=== PATIENT | male | born 1940 | race Caucasian/White ===

== ENCOUNTER 2022-07-12 06:17 | Day surgery (SDC) | payer MEDICARE, BC, SELFPAY ==
[2022-07-12] VITALS (8 sets, daily range): BP systolic 134–163; BP diastolic 70–82; PULSE 68–77; RESP 16; TEMP 36.6; O2SAT 95–97; BMI 27.2
[2022-07-12] MEDS: lidocaine HCL 2 % MULTIDOSE 20 ML VIAL INJECTION (07:30)
[2022-07-12] MEDS: BUPIVACAINE 0.5% 30 ML INJECTION (07:30)
--- NOTE | 2022-07-12 08:01 | P.ORPRC_ITS ---
Procedure Note Date of procedure: 07/12/22 Procedure: Preop diagnosis: Left hand ring finger stenosing tenosynovitis Postop diagnosis: Left hand ring finger stenosing tenosynovitis Procedure: Left hand ring finger A1 omid release Anesthesia: Local Surgeon: Markus Olivera MD multimedia production assistant: KELLY Costa EBL: 0 mL Complications: None Specimens: None Drains: None Preoperative antibiotics: None Indications: The patient has a history of left upper extremity ring fingers painful catching and locking. Despite appropriate non operative management including flexor tendon sheath corticosteroid injections they continue to have symptoms. Operative intervention was recommended. The risks, benefits alternatives and expected outcomes were discussed in detail. These included but were not limited to: Infection, bleeding, injury to blood vessel or nerve, venous thromboembolism. All questions were answered to their satisfaction. The patient was placed supine on the operating room table. Local anesthesia was established with 0.5% Marcaine without epinephrine and 2% lidocaine without epinephrine. The hand was prepped and draped in usual sterile fashion. The limb was elevated the forearm pneumatic tourniquet was inflated to 250 mm of mercury. A transverse incision was made centered over the base of the ring finger in the distal palmar crease. Subcutaneous dissection was taken through the palmar fascia to the flexor tendons with the tenotomy scissors. The A1 omid was r eleased with the 15 blade and a tenotomy scissors. Active flexion and extension of the finger shows no catching or locking, no bowstringing of the flexor tendons. The wound was closed with interrupted nylon sutures. A dry dressing was applied the tourniquet was released. Sponge and needle counts were correct x 2. The patient tolerated the procedure well, there were no apparent complications. They were sent to same day surgery in satisfactory condition. Plan: Use of the hand as tolerates. Discontinue the intraoperative dressing on postoperative day 3 and may get the wound wet as tolerates. Follow up in the office in 2 weeks for a wound check and suture removal.
== END 2022-07-12 08:34 | disposition home or self-care (01) ==
PROVIDERS: PCP Family Medicine; Visit Provider Orthopaedic Surgery
PROC: (CPT 26055; principal; 2022-07-12 07:30)
DX: M65.341 Trigger finger, right ring finger (principal); M65.841 Other synovitis and tenosynovitis, right hand
CPT/HCPCS: 26055; J3490

== ENCOUNTER 2022-08-15 14:53 | Outpatient (RCR) | payer MEDICARE, BC, SELFPAY ==
[2022-08-15 15:32] LABS: Basophils Percent Auto 0.8 % (0.0-3.0); Eosinophils Percent Auto 2.6 % (0.0-7.0); Hematocrit 35.6 % (37.0-53.0); Hemoglobin* 11.7 gm/dL (13.5-17.5); Immature Granulocytes Abs Auto 0.08 K/uL (0.00-0.30); Lymphocytes Percent Auto 64.2 % (20-44); Mean Corpuscular HGB Conc 33 gm/dL (32-36); Mean Corpuscular Hemoglobin 31 pg (26-34); Mean Corpuscular Volume 95 fL (80-100); Neutrophils Percent Auto 25.9 % (42.0-72.0); Platelet Count* 189 K/uL (140-440); RDW Coefficient of Variation % 13.1 % (11.5-15.5); Red Blood Count 3.74 m/uL (4.30-5.90); White Blood Count* 15.41 K/uL (4.50-11.00)
[2022-08-15 15:39] LABS: Slide Review Reflex Yes
[2022-08-15 16:16] LABS: Lactate Dehydrogenase* 455 U/L (313-618)
[2022-08-15 16:45] LABS: Immature Reticulocyte Fraction 13.4 % (2.3-13.4); Reticulocyte Hemoglobin Equivi 31.7 pg (29.0-35.0); Reticulocyte Percent 1.7 % (0.5-2.0); Reticulocytes Absolute 0.06 # (0.03-0.08)
[2022-08-15 17:14] LABS: Ferritin* 89.9 ng/mL (17.9-464.0); Slide Review Acceptable Review (Acceptable)
[2022-08-15 17:45] LABS: Vitamin B12* 355 pg/mL (243-894)
[2022-08-16 14:26] LABS: Fecal Occult Blood* Negative (Negative)
[2022-08-21 06:36] LABS: Folate, Serum > 22.3 ng/mL (>=5.9)
== END 2023-02-11 23:59 | disposition home or self-care (01) ==
LOC: CCIC 14:53
PROVIDERS: PCP Family Medicine; Referring Provider Family Medicine; Visit Provider Internal Medicine Hematology & Oncology
DX: C91.Z0 Other lymphoid leukemia not having achieved remission (principal); E83.51 Hypocalcemia; C91.11 Chronic lymphocytic leukemia of B-cell type in remission
CPT/HCPCS: 36415; 82270; 82607; 82728; 82746; 83615; 85025; 85045; 99212; 99214

== ENCOUNTER 2022-09-11 13:45 | Outpatient (RCR) | payer MEDICARE, BC, SELFPAY ==
--- NOTE | 2022-07-17 17:13 | PT.OPEX ---
PT [place] Outpatient Eval PT [facility] Outpatient Eval Start: 07/17/22 16:13 Freq: Status: Active Protocol: Document 07/17/22 16:15 NMK (Rec: 07/17/22 17:12 NMK [id number]) E-signed By Jesus Rome DPT Physical Therapy Outpatient Evaluation Insurance Information Recert Due Date 10/17/22 Insurance Name Medicare B,Blue [employer] Medical Diagnosis Pain in Right Shoulder Treating Diagnosis Right shoulder pain; Decreased Right shoulder ROM Referring Markus Noble MD Subjective Subjective 82 y.o. male pt presents with primary c/o bilateral shoulder pain. On the L shoulder, he reports pain his shoulder is achy and he gets pins and needles down into his L shoulder. He does not get much pain is his L shoulder, but rather reports more numbness. He also reports some neck pain on his L side as well. He denies symptoms distally at this time. R shoulder was hurt last thanksgiving when he was doing cutting squash last thanksgi. He got an MRI on the R which revealed torn rotator cuff and biceps tendon on the R. Pain in shoulder with R>L. Difficult/provoking activities in the R shoulder include washing windows or other reaching activities such as changing a light bulb. He also pain with lifting activities as well as turning over in bed at night. He reports the numbness in his L shoulder does not really follow a pattern at this time. He is hoping to get his shoulders and neck to feeling better so they are less bothersome, and he is hoping to improve some strength around his shoulder. PMH: 6 stents in heart; Bilateral hip and knee replacements; HTN; Leukemia; Arthritis; Latex allergy Current Work Status Retired Preferred Name Sudhakar Precautions Treatment Precautions/Contraindications Latex allergy; HTN Therapy Limitations/Systems Review Not Limited Objective Other/Pertinent Objective MMT: L/R Shoulder flexion: 5/4* Shoulder abduction: 5/4-* Shoulder ER: 5/4+ Shoulder IR: 5/4 *indicates pain with resisted testing ROM Shoulder flexion L: 130 degrees R: 110 degrees Shoulder abduction L: 135 degrees R: 75 degrees Shoulder IR: L: Level of T10-L1 R: Sacrum Palpation: TTP present over anterior and posterior cuff structures; no other TTP present over any other structures. Special tests Full can: (+) on R Empty can: (+) on R ER resistance: (+) on R Assessment Assessment/Impression Findings are consistent with a diagnosis of R mechanical shoulder pain with signs and symptoms consistent with RC tear, likely involving supraspinatus muscle based on muscle testing. Impairments related to current health condition include R shoulder pain, decreased shoulder ROM on R, and shoulder weakness. These impairments contribute to decreased ability to lift arm and other heavy objects as well as perform reaching activities for daily living. Examination of body systems including structures, functions, activity limitations and participation restrictions have been addressed. Skilled PT is recommended in order to improve the patient's mobility and restore their baseline level of function. Within session patient tolerating shoulder isometrics and ROM exercises showing some improvements in ROM after our session. Primary Functional Limitations Reaching, lifting Plan of Care Rehabilitation Potential Fair Physical Therapy Goals Prior to 10/17/2022... 1. Pt will demonstrate shoulder active range of motion >150 degrees in involved upper extremity in order to show functional ability to reach into cabinets at home 2. Pt will demonstrate ability to lift 5 pounds overhead report less than 3/10 shoulder pain when doing so to show ability to lift objects at home 3. Pt will report <3/10 pain while sleeping at night and wake up less than 3 times per night from pain to show enhanced sleep quality 4. Pt will be independent in HEP in order to show ability to self manage condition after discharge Coordination/Communication With Referral Source Treatment Plan/Direct Interventions Joint Mobilization,Manual Therapy,Self-Care/Home Management,Therapeutic Exercises Frequency/Duration 1-2 per week for 8-12 weeks Patient Will Be Discharged From Therapy Completion of LTG(s),Skills Plateau,Independent w/HEP, Independently Progressing Evaluation Billing Untimed Code Treatment Minutes 20 Complexity Moderate Certification Information Initial Certification Date 07/17/22 Ending Certification Date 10/17/22 Physician Comment/Change Comment or Changes Physician NPI Number #
== END 2022-09-13 14:17 | disposition home or self-care (01) ==
PROVIDERS: PCP Family Medicine; Visit Provider Orthopaedic Surgery
DX: M25.511 Pain in right shoulder (principal); Z51.89 Encounter for other specified aftercare
CPT/HCPCS: 97110; 97140; 97162

== ENCOUNTER 2022-12-04 06:17 | Day surgery (SDC) | payer MEDICARE, BC, SELFPAY ==
[2022-12-04] VITALS (7 sets, daily range): BP systolic 114–142; BP diastolic 70–91; PULSE 58–72; RESP 16; TEMP 36.1–36.7; O2SAT 92–98; BMI 28.6
[2022-12-04] MEDS: LACTATED RINGERS 1000 ML 1,000 ML 100 ML IV (07:07)
[2022-12-04] MEDS: SODIUM CHLORIDE 0.9 % (FLUSH) 10 ML SYRINGE IVF (07:08)
--- NOTE | 2022-12-04 07:10 | SUR.PREOP ---
patient did home covid antigen test on 12/03/22 afternoon. Patient brought test in to show nurse. I observed 1 line indicating a negative test.
[2022-12-04] MEDS: MIDAZOLAM HCL 1 MG/ML inj IVP (07:14)
[2022-12-04] MEDS: fentaNYL 100 MCG/2 ML inj IVP (07:14)
--- NOTE | 2022-12-04 07:16 | SUR.PREOP ---
TIME?OUT:?07 PT/Mari Kan RN/Dr. Gabriele MDA?VERIFICATION?OF?SURGICAL?SITE Left elbow,?PROCEDURE,?AND?CONSENT OBTAINED?PRIOR?TO?INVASIVE?PROCEDURE.
--- NOTE | 2022-12-04 07:25 | P.NB_ITS ---
Nerve Block Nerve Block Time Seen by Provider: 07:21 Date Seen: 12/04/22 Type of block requested by surgeon for post-operative analgesia: axillary Side: left Time out performed: Yes Verification of patient name: Yes Verification of date of : Yes Site marking: site marked Name of person performing procedure: Gabriele Continuous monitoring Was continuous monitoring of O2 sat, B/P, school bus monitor, recorded every 15 minutes?: Yes Procedure Checklist: sterile prep, needles and gloves Ultrasound guided. Images saved: Yes Medications given in 5ml increments after negative aspiration: Marcaine %: 0.25 mL: 15 Needle gauge: 22 and Lidocaine %: 2 mL: 15 Needle gauge: 22 Patient tolerated procedure well: Yes Additional comments: Needle noted adjacent to nerve Block Charges Block Charge (with Pro Fee): Brachial Plexus Use of Ultrasound Machine for Block: Yes- US Guidance/pain block
[2022-12-04] MEDS: CEFAZOLIN 2 GM INJ IVP (07:37)
--- NOTE | 2022-12-04 08:07 | PM.ORPRC ---
Procedure Note Date of procedure: 12/04/22 Procedure: Preop diagnosis: Left upper extremity cubital tunnel syndrome Postop diagnosis: Left upper extremity cubital tunnel syndrome Procedure: Left upper extremity cubital tunnel release Anesthesia: Axillary block plus MAC Surgeon: Markus Olivera MD certified medical technician assistant: Aryan MENDOZA EBL: 0 mL Complications: None Specimens: None Drains: None Preoperative antibiotics: Ancef 2 g Indications: The patient has a history of left upper extremity cubital tunnel syndrome symptoms. EMG/nerve conduction study confirms the diagnosis. Despite appropriate nonoperative management they continue to have symptoms. Operative intervention was recommended. The risks, benefits alternatives and expected outcomes were discussed in detail. These included but were not limited to: Infection, bleeding, injury to blood vessel or nerve, venous thromboembolism. All questions were answered to their satisfaction. An axillary block was placed by anesthesia. The patient was placed supine on the operating room table. IV sedation was administered. The upper extremity was prepped and draped in usual sterile fashion. The limb was exsanguinated with the Markell bandage, the pneumatic tourniquet was inflated to 250 mm of mercury. A longitudinal incision was made centered over the ulnar nerve at the cubital tunnel. Subcutaneous dissection was taken with the scalpel and Metzenbaum and tenotomy scissors to the ulnar nerve. Dissection was carried distally to the fascia over the flexor carpi ulnaris which was divided longitudinally. We visualized the motor branch to the FCU. Dissection was carried proximally into the triceps muscle belly. 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 This was released off of the medial epicondyle. This results in a wide decompression of the ulnar nerve. Flexion and extension of the elbow shows the nerve is stable. The wound was irrigated with normal saline. It was closed with a 2-0 Vicryl and a 3-0 Monocryl in a subcuticular fashion. Glue was used to seal the skin. A soft dressing was applied. The tourniquet was released. The patient tolerated the procedure well, there were no apparent complications. They were sent to same day surgery in satisfactory condition. Plan: Use of the upper extremity as tolerates. Discontinue the intraoperative dressing on postoperative day 3 and may get the wound wet as tolerates. Follow up in the office in 1-2 weeks for a wound check.
--- NOTE | 2022-12-04 08:39 | W.ANESCHARGE ---
Anesthesia Charges Start Date/Time Anesthesia Start Date: 12/04/22 Anesthesia Start Time: 07:27 Stop Date/Time Anesthesia Stop Date: 12/04/22 Anesthesia Stop Time: 08:35 Summary Emergency: No Extremes of Age: Over 70-CPT 19516
--- NOTE | 2022-12-04 09:45 | W.ANESCHARGE ---
Anesthesia Charges Start Date/Time Anesthesia Start Date: 12/04/22 Anesthesia Start Time: 07:27 Stop Date/Time Anesthesia Stop Date: 12/04/22 Anesthesia Stop Time: 08:35 Summary Emergency: No Extremes of Age: Over 70-CPT 14714
== END 2022-12-04 09:40 | disposition home or self-care (01) ==
PROVIDERS: PCP Family Medicine; Visit Provider Orthopaedic Surgery
PROC: (CPT 64718; principal; 2022-12-04 07:30)
DX: G56.22 Lesion of ulnar nerve, left upper limb (principal)
CPT/HCPCS: 64718; 01710; 64415; 76942; 99100; J0690; J2250; J2405; J2704; J3010; J3490; J7120

== ENCOUNTER 2023-05-14 10:00 | Outpatient (RCR) | payer MEDICARE, BC, SELFPAY ==
[2023-02-12 11:17] LABS: Basophils Percent Auto 0.8 % (0.0-3.0); Eosinophils Percent Auto 2.1 % (0.0-7.0); Hemoglobin* 12.9 gm/dL (13.5-17.5); Immature Granulocytes Pct Auto 0.3 %; Lymphocytes Percent Auto 64.4 % (20-44); Mean Corpuscular HGB Conc 33 gm/dL (32-36); Mean Corpuscular Hemoglobin 31 pg (26-34); Mean Corpuscular Volume 93 fL (80-100); Monocytes Percent Auto 4.1 % (0.0-11.0); Neutrophils Percent Auto 28.3 % (42.0-72.0); Platelet Count* 210 K/uL (140-440); RDW Coefficient of Variation % 12.7 % (11.5-15.5); White Blood Count* 20.44 K/uL (4.50-11.00)
[2023-02-12 11:33] LABS: Albumin* 4.2 g/dL (3.3-5.0)
[2023-02-12 11:34] LABS: Chloride* 103 mmol/L (96-114); Potassium* 3.7 mmol/L (3.6-5.1); Sodium* 138 mmol/L (135-149)
[2023-02-12 11:36] LABS: Alkaline Phosphatase* 90 U/L (40-150); Aspartate Amino Transferase* 22 U/L (12-35); Bilirubin Total* 1.1 mg/dL (0.1-1.5); Carbon Dioxide* 28 mmol/L (20-32); Creatinine* 0.9 mg/dL (0.5-1.5); Estimated Glomerular Filt Rate 85 ml/min; Total Protein* 6.6 g/dL (6.0-8.3)
[2023-02-12 11:37] LABS: Alanine Aminotransferase* 16 U/L (4-50); Blood Urea Nitrogen* 16 mg/dL (7-30); Calcium* 8.4 mg/dL (8.4-10.6); Glucose* 108 mg/dL (60-115); Lactate Dehydrogenase* 176 U/L (120-246)
[2023-02-12 11:56] LABS: Slide Review Reflex Yes
[2023-02-12 11:57] LABS: Slide Review Acceptable Review (Acceptable)
[2023-05-14 10:06] LABS: Basophils Percent Auto 0.5 % (0.0-3.0); Eosinophils Percent Auto 1.2 % (0.0-7.0); Hematocrit 36.6 % (37.0-53.0); Hemoglobin* 12.3 gm/dL (13.5-17.5); Immature Granulocytes Pct Auto 0.5 %; Lymphocytes Percent Auto 73.1 % (20-44); Mean Corpuscular HGB Conc 34 gm/dL (32-36); Mean Corpuscular Hemoglobin 32 pg (26-34); Mean Corpuscular Volume 94 fL (80-100); Monocytes Percent Auto 3.8 % (0.0-11.0); Neutrophils Percent Auto 20.9 % (42.0-72.0); Platelet Count* 202 K/uL (140-440); RDW Coefficient of Variation % 12.5 % (11.5-15.5); White Blood Count* 19.94 K/uL (4.50-11.00)
[2023-05-14 10:22] LABS: Albumin* 4.2 g/dL (3.3-5.0); Chloride* 98 mmol/L (96-114)
[2023-05-14 10:23] LABS: Potassium* 3.8 mmol/L (3.6-5.1); Sodium* 130 mmol/L (135-149)
[2023-05-14 10:25] LABS: Aspartate Amino Transferase* 22 U/L (12-35); Bilirubin Total* 1.1 mg/dL (0.1-1.5); Carbon Dioxide* 24 mmol/L (20-32); Estimated Glomerular Filt Rate 75 ml/min; Total Protein* 6.4 g/dL (6.0-8.3)
[2023-05-14 10:26] LABS: Alanine Aminotransferase* 16 U/L (4-50); Alkaline Phosphatase* 89 U/L (40-150); Blood Urea Nitrogen* 20 mg/dL (7-30); Calcium* 8.6 mg/dL (8.4-10.6); Glucose* 127 mg/dL (60-115); Lactate Dehydrogenase* 141 U/L (120-246)
[2023-05-14 10:34] LABS: Slide Review Reflex Yes
[2023-05-14 10:35] LABS: Slide Review Acceptable Review (Acceptable)
--- NOTE | 2023-06-06 16:49 | ONC.NURNOTE ---
Patient had sodium of 131 today-previously 130-Dr. Cummings reviewed and asked travel writer to call and let patient know results and instruct patient to continue to take in as much sodium as he can. Follow up with primary care Message left as no answer
== END 2023-08-11 23:59 | disposition home or self-care (01) ==
LOC: CCIC 10:00
PROVIDERS: PCP Family Medicine; Referring Provider Family Medicine; Visit Provider Internal Medicine Hematology & Oncology
DX: D72.820 Lymphocytosis (symptomatic) (principal); D64.9 Anemia, unspecified; E83.51 Hypocalcemia; E87.1 Hypo-osmolality and hyponatremia
CPT/HCPCS: 36415; 80053; 83615; 85025; 99212; 99213; 99214

== ENCOUNTER 2023-05-30 09:00 | Outpatient (CLI) | payer MEDICARE, BC, SELFPAY | END 2023-05-30 09:01 | disposition home or self-care (01) | PROVIDERS: PCP Family Medicine; Referring Provider Family Medicine; Visit Provider Internal Medicine Hematology & Oncology | DX: E87.1 Hypo-osmolality and hyponatremia (principal) | CPT/HCPCS: 84295 ==

== ENCOUNTER 2024-05-06 10:30 | Outpatient (RCR) | payer MEDICARE, BC, SELFPAY ==
--- NOTE | 2023-10-10 11:45 | ONC.NURNOTE ---
Called to schedule 6 mon follow up/labs due October 2023, Reggie stated that he would like bloodwork done every 6 months , follow up at 12 months.
[2023-11-08 10:05] LABS: Basophils Percent Auto 0.4 % (0.0-3.0); Eosinophils Percent Auto 1.5 % (0.0-7.0); Hematocrit 41.6 % (37.0-53.0); Hemoglobin* 13.2 gm/dL (13.5-17.5); Immature Granulocytes Pct Auto 0.4 %; Lymphocytes Percent Auto 63.1 % (20-44); Mean Corpuscular HGB Conc 32 gm/dL (32-36); Mean Corpuscular Hemoglobin 31 pg (26-34); Mean Corpuscular Volume 97 fL (80-100); Monocytes Percent Auto 4.3 % (0.0-11.0); Neutrophils Percent Auto 30.3 % (42.0-72.0); Platelet Count* 210 K/uL (140-440); RDW Coefficient of Variation % 12.6 % (11.5-15.5); Red Blood Count 4.27 m/uL (4.30-5.90); White Blood Count* 18.45 K/uL (4.50-11.00)
[2023-11-08 10:26] LABS: Albumin* 4.5 g/dL (3.3-5.0); Chloride* 106 mmol/L (96-114)
[2023-11-08 10:27] LABS: Potassium* 4.1 mmol/L (3.6-5.1); Sodium* 140 mmol/L (135-149)
[2023-11-08 10:29] LABS: Anion Gap 8 mEq/L (7-15); Bilirubin Total* 0.9 mg/dL (0.1-1.5); Carbon Dioxide* 26 mmol/L (20-32); Creatinine* 0.9 mg/dL (0.5-1.5); Estimated Glomerular Filt Rate 85 ml/min
[2023-11-08 10:30] LABS: Alanine Aminotransferase* 27 U/L (4-50); Alkaline Phosphatase* 98 U/L (40-150); Aspartate Amino Transferase* 30 U/L (12-35); Blood Urea Nitrogen* 16 mg/dL (7-30); Calcium* 9.1 mg/dL (8.4-10.6); Glucose* 91 mg/dL (60-115); Lactate Dehydrogenase* 164 U/L (120-246)
[2023-11-08 10:46] LABS: Slide Review Reflex Yes
[2023-11-08 10:47] LABS: Slide Review Acceptable Review (Acceptable)
== END 2024-05-06 23:59 | disposition home or self-care (01) ==
LOC: CCIC 10:30
PROVIDERS: PCP Family Medicine; Referring Provider Family Medicine; Visit Provider Internal Medicine Hematology & Oncology
DX: D72.820 Lymphocytosis (symptomatic) (principal)
CPT/HCPCS: 36415; 80053; 83615; 85025

== ENCOUNTER 2024-06-09 09:45 | Outpatient (RCR) | payer MEDICARE, BC, SELFPAY ==
[2024-06-09 10:11] LABS: Basophils Percent Auto 0.2 % (0.0-3.0); Eosinophils Percent Auto 1.3 % (0.0-7.0); Hematocrit 38.1 % (37.0-53.0); Hemoglobin* 12.6 gm/dL (13.5-17.5); Immature Granulocytes Pct Auto 0.5 %; Lymphocytes Percent Auto 74.1 % (20-44); Mean Corpuscular HGB Conc 33 gm/dL (32-36); Mean Corpuscular Hemoglobin 31 pg (26-34); Mean Corpuscular Volume 93 fL (80-100); Monocytes Percent Auto 4.4 % (0.0-11.0); Neutrophils Percent Auto 19.5 % (42.0-72.0); Platelet Count* 157 K/uL (140-440); RDW Coefficient of Variation % 12.3 % (11.5-15.5)
[2024-06-09 10:23] LABS: Albumin* 4.3 g/dL (3.3-5.0); Chloride* 99 mmol/L (96-114); Sodium* 130 mmol/L (135-149)
[2024-06-09 10:24] LABS: Potassium* 4.1 mmol/L (3.6-5.1)
[2024-06-09 10:26] LABS: Alkaline Phosphatase* 88 U/L (40-150); Anion Gap 8 mEq/L (7-15); Aspartate Amino Transferase* 21 U/L (12-35); Bilirubin Total* 0.9 mg/dL (0.1-1.5); Blood Urea Nitrogen* 15 mg/dL (7-30); Carbon Dioxide* 23 mmol/L (20-32); Creatinine* 0.9 mg/dL (0.5-1.5); Estimated Glomerular Filt Rate 84 ml/min; Lactate Dehydrogenase* 129 U/L (120-246); Total Protein* 6.5 g/dL (6.0-8.3)
[2024-06-09 10:27] LABS: Alanine Aminotransferase* 13 U/L (4-50); Calcium* 9.2 mg/dL (8.4-10.6); Glucose* 125 mg/dL (60-115)
[2024-06-09 10:48] LABS: Slide Review Reflex Yes; White Blood Count* 25.16 K/uL (4.50-11.00)
[2024-06-09 10:49] LABS: Slide Review Acceptable Review (Acceptable)
--- NOTE | 2024-06-09 14:00 | PC.NURSE ---
Received a call from Ciara at [facility] asking for clarification about CBC, CMP, and LDH and quantity and frequency. RN reviewed MD notes and discussed with Dr. Cummings. She would like all 3 labs done every 3 months x 4. Called Ciara back with this clarification.
== END 2024-12-06 23:59 | disposition home or self-care (01) ==
LOC: CCIC 09:45
PROVIDERS: PCP Family Medicine; Referring Provider Family Medicine; Visit Provider Internal Medicine Hematology & Oncology
DX: D72.820 Lymphocytosis (symptomatic) (principal); D64.9 Anemia, unspecified; E83.51 Hypocalcemia; E87.1 Hypo-osmolality and hyponatremia
CPT/HCPCS: 36415; 80053; 83615; 85025; 99214; G0463

== ENCOUNTER 2025-01-01 08:41 | Outpatient (CLI) | payer MEDICARE, BC, SELFPAY ==
--- NOTE | 2025-01-01 10:42 | P.ANES_ITS ---
Anesthesia Charges Start Date/Time Anesthesia Start Date: 01/01/25 Anesthesia Start Time: 10:09 Stop Date/Time Anesthesia Stop Date: 01/01/25 Anesthesia Stop Time: 10:37 Coding CPT Codes CPT Codes: ANES LWR INTST NDSC NOS - 08479 ([id number]) P3 - PATIENT W/SEVERE SYS DISEASE, QK - STAMP REDEMPTION CLERK 2-4 CNCRNT ANES PROC, QX - PRICING DIRECTOR SVC W/ MD MED DIRECTION
--- NOTE | 2025-01-01 10:42 | W.ANESCHARGE ---
Anesthesia Charges Start Date/Time Anesthesia Start Date: 01/01/25 Anesthesia Start Time: 10:09 Stop Date/Time Anesthesia Stop Date: 01/01/25 Anesthesia Stop Time: 10:37 Coding CPT Codes CPT Codes: ANES LWR INTST NDSC NOS - 06821 ([id number]) P3 - PATIENT W/SEVERE SYS DISEASE, QK - PHARMACIST ASSISTANT 2-4 CNCRNT ANES PROC, QX - INTEGRATION ASSISTANT SVC W/ MD MED DIRECTION
--- NOTE | 2025-01-01 11:32 | P.ANES_ITS ---
Anesthesia Charges Start Date/Time Anesthesia Start Date: 01/01/25 Anesthesia Start Time: 10:09 Stop Date/Time Anesthesia Stop Date: 01/01/25 Anesthesia Stop Time: 10:37 Summary Extremes of Age - Over 70 or under 1: MDA Coding CPT Codes CPT Codes: ANES LWR INTST NDSC NOS - 00691 ([id number]) QK - TELECOMMUNICATIONS OPERATOR 2-4 CNCRNT ANES PROC, QX - WELL POINT PUMPING SUPERVISOR SVC W/ MD MED DIRECTION, P3 - PATIENT W/SEVERE SYS DISEASE Additional Codes: Summary - Extremes of Age - Over 70 or under 1: MDA ([id number])
== END 2025-01-01 08:42 | disposition home or self-care (01) ==
LOC: OP CLINIC 08:42
PROVIDERS: PCP Family Medicine; Visit Provider Internal Medicine Gastroenterology
DX: Z12.11 Encounter for screening for malignant neoplasm of colon (principal); D12.2 Benign neoplasm of ascending colon; D12.3 Benign neoplasm of transverse colon; Z86.0100 Personal history of colon polyps, unspecified
CPT/HCPCS: 00811; 45385; 88305; 99100; J2704

== ENCOUNTER 2025-06-14 08:30 | Outpatient (RCR) | payer MEDICARE, BC, SELFPAY ==
[2024-12-23 10:34] LABS: Albumin* 4.4 g/dL (3.3-5.0); Hematocrit 40.5 % (37.0-53.0); Hemoglobin* 13.1 gm/dL (13.5-17.5); Immature Granulocytes Pct Auto 0.5 %; Mean Corpuscular HGB Conc 32 gm/dL (32-36); Mean Corpuscular Hemoglobin 31 pg (26-34); Mean Corpuscular Volume 95 fL (80-100); RDW Coefficient of Variation % 13.0 % (11.5-15.5); Red Blood Count 4.28 m/uL (4.30-5.90); White Blood Count* 20.47 K/uL (4.50-11.00)
[2024-12-23 10:35] LABS: Chloride* 106 mmol/L (96-114); Potassium* 3.9 mmol/L (3.6-5.1); Sodium* 140 mmol/L (135-149)
[2024-12-23 10:37] LABS: Anion Gap 9 mEq/L (7-15); Aspartate Amino Transferase* 22 U/L (12-35); Bilirubin Total* 1.1 mg/dL (0.1-1.5); Carbon Dioxide* 25 mmol/L (20-32); Creatinine* 0.8 mg/dL (0.5-1.5); Est. Creatinine Clearance* 49.62; Estimated Glomerular Filt Rate 87 ml/min
[2024-12-23 10:38] LABS: Alanine Aminotransferase* 16 U/L (4-50); Alkaline Phosphatase* 84 U/L (40-150); Blood Urea Nitrogen* 15 mg/dL (7-30); Calcium* 8.8 mg/dL (8.4-10.6); Glucose* 111 mg/dL (60-115); Total Protein* 6.4 g/dL (6.0-8.3)
[2024-12-23 10:41] LABS: Immature Granulocytes Abs Auto 0.10 K/uL (0.00-0.30); Lymphocytes Absolute Auto 14.20 K/uL (0.90-2.90); Slide Review Reflex Yes
[2024-12-23 11:05] LABS: Slide Review Acceptable Review (Acceptable)
[2025-03-10 11:10] LABS: Hematocrit 38.7 % (37.0-53.0); Hemoglobin* 12.7 gm/dL (13.5-17.5); Immature Granulocytes Pct Auto 0.6 %; Mean Corpuscular HGB Conc 33 gm/dL (32-36); Mean Corpuscular Hemoglobin 31 pg (26-34); Mean Corpuscular Volume 94 fL (80-100); RDW Coefficient of Variation % 12.9 % (11.5-15.5); Red Blood Count 4.10 m/uL (4.30-5.90); White Blood Count* 23.39 K/uL (4.50-11.00)
[2025-03-10 11:30] LABS: Albumin* 4.3 g/dL (3.3-5.0); Chloride* 105 mmol/L (96-114); Potassium* 3.6 mmol/L (3.6-5.1); Sodium* 139 mmol/L (135-149)
[2025-03-10 11:32] LABS: Alanine Aminotransferase* 38 U/L (4-50); Alkaline Phosphatase* 93 U/L (40-150); Anion Gap 9 mEq/L (7-15); Aspartate Amino Transferase* 41 U/L (12-35); Bilirubin Total* 1.1 mg/dL (0.1-1.5); Blood Urea Nitrogen* 11 mg/dL (7-30); Carbon Dioxide* 25 mmol/L (20-32); Creatinine* 0.9 mg/dL (0.5-1.5); Est. Creatinine Clearance* 48.74; Estimated Glomerular Filt Rate 84 ml/min
[2025-03-10 11:33] LABS: Calcium* 8.0 mg/dL (8.4-10.6); Glucose* 114 mg/dL (60-115); Total Protein* 6.3 g/dL (6.0-8.3)
[2025-03-10 11:42] LABS: Immature Granulocytes Abs Auto 0.10 K/uL (0.00-0.30); Lymphocytes Absolute Auto 16.20 K/uL (0.90-2.90)
[2025-03-10 11:43] LABS: Slide Review Reflex Yes
[2025-03-10 11:52] LABS: Slide Review Acceptable Review (Acceptable)
--- NOTE | 2025-03-10 12:57 | ONC.NURNOTE ---
MD reviewed labs today. Advised that pt see PCP to manage low Calcium. Called pt and LM at primary number with this instruction. Invited a call back with follow-up questions. Pt is scheduled for labs/MD in May.
[2025-06-14 08:51] LABS: Hematocrit 38.7 % (37.0-53.0); Hemoglobin* 12.7 gm/dL (13.5-17.5); Immature Granulocytes Pct Auto 0.5 %; Mean Corpuscular HGB Conc 33 gm/dL (32-36); Mean Corpuscular Hemoglobin 31 pg (26-34); Mean Corpuscular Volume 95 fL (80-100); RDW Coefficient of Variation % 13.2 % (11.5-15.5); Red Blood Count 4.08 m/uL (4.30-5.90); White Blood Count* 22.84 K/uL (4.50-11.00)
[2025-06-14 08:53] LABS: Immature Granulocytes Abs Auto 0.10 K/uL (0.00-0.30); Lymphocytes Absolute Auto 16.00 K/uL (0.90-2.90); Slide Review Reflex Yes
[2025-06-14 09:09] LABS: Albumin* 4.0 g/dL (3.3-5.0); Chloride* 108 mmol/L (96-114); Potassium* 3.7 mmol/L (3.6-5.1); Sodium* 140 mmol/L (135-149)
[2025-06-14 09:12] LABS: Alanine Aminotransferase* 18 U/L (4-50); Alkaline Phosphatase* 89 U/L (40-150); Anion Gap 6 mEq/L (7-15); Aspartate Amino Transferase* 25 U/L (12-35); Bilirubin Total* 0.9 mg/dL (0.1-1.5); Blood Urea Nitrogen* 10 mg/dL (7-30); Carbon Dioxide* 26 mmol/L (20-32); Creatinine* 0.8 mg/dL (0.5-1.5); Est. Creatinine Clearance* 48.74; Estimated Glomerular Filt Rate 87 ml/min; Total Protein* 6.1 g/dL (6.0-8.3)
[2025-06-14 09:13] LABS: Calcium* 8.5 mg/dL (8.4-10.6); Glucose* 124 mg/dL (60-115)
[2025-06-14 09:41] LABS: Slide Review Acceptable Review (Acceptable)
== END 2025-06-21 23:59 | disposition home or self-care (01) ==
LOC: CCIC 08:30
PROVIDERS: PCP Family Medicine; Referring Provider Family Medicine; Visit Provider Internal Medicine Hematology & Oncology
DX: D72.820 Lymphocytosis (symptomatic) (principal)
CPT/HCPCS: 36415; 80053; 83615; 85025; 99213; 99214; G0463

== ENCOUNTER 2025-11-03 12:42 | Emergency (ER) | payer MEDICARE, BC, SELFPAY ==
[2025-11-03] VITALS (33 sets, daily range): BP systolic 115–156; BP diastolic 56–76; PULSE 56–83; RESP 16–18; TEMP 36.1; O2SAT 93–98; BMI 28.2
--- NOTE | 2025-11-03 13:49 | CRLHL7_ITS ---
For Patients: As a result of the Century Cures Act, medical imaging exams and procedure reports are released immediately into your electronic medical record. You may view this report before your referring provider. If you have questions, please contact your health care provider. INDICATION: Chest pain COMPARISON: None TECHNIQUE: A single view study was obtained as a portable CXR,dated November 03, 2025 FINDINGS: As discussed below IMPRESSION: 1. Normal cardiac contour. 2. The lungs are clear. 3. Normal pleural spaces. 4. Degenerative changes especially at the shoulder joints. Dictated by Diallo Morales MD @ 11/03/2025 2:52:24 PM (Electronically Signed)
--- NOTE | 2025-11-03 13:56 | ED.GENADULT ---
HPI - General Adult General Chief complaint: Chest Pain <Reuben Crockett MD - Last Filed: 11/08/25 08:25> Stated complaint: Weakness in arms, stinging in throat <Reuben Crockett MD - Last Filed: 11/08/25 08:25> Time Seen by Provider: 11/03/25 13:17 <Reuben Crockett MD - Last Filed: 11/08/25 08:25> History of Present Illness HPI narrative: Patient is an 85 year white male has had a total of 6 stents cardiac in the past, he was out snow blowing today and doing some shoveling went into his house and then for about 10 minutes had some pain across his chest from left to right, he felt his arms felt funny as well but that improved and he has been asymptomatic since. He has had no real shortness of breath or diaphoresis or nausea vomiting with that episode. He had been out snow blowing walking minus no blower as well as doing some shovel lifting. He has had some stents at [facility] and some at [facility]. He has had no recent chest pain. 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 He has seen oncology for that. Patient otherwise feels well, no recent illness fever chills no exercise intolerance from baseline. Patient reports he has not been taking his aspirin. <Reuben Crockett MD - Last Filed: 11/08/25 08:25> Related Data Home medications: Home Medications ?Medication ?Instructions ?Recorded ?Confirmed acetaminophen 325 mg tablet 325 mg PO DAILY PRN 07/04/22 06/14/25 atorvastatin 20 mg tablet 20 mg PO .Bedtime 07/04/22 06/14/25 nitroglycerin 0.4 mg sublingual 0.4 mg sublingual PRN 07/04/22 06/14/25 tablet omeprazole 20 mg capsule,delayed 20 mg PO DAILY 07/04/22 06/14/25 release losartan 100 mg tablet 100 mg PO QDAY 08/15/22 06/14/25 metoprolol succinate 25 mg 25 mg PO QDAY 08/15/22 06/14/25 tablet,extended release 24 hr betamethasone, augmented 0.05 % applic topical 01/30/23 06/14/25 topical cream ketoconazole 2 % topical cream applic topical 01/30/23 06/14/25 triamcinolone acetonide 0.1 % 1 applic topical BID-TID 01/30/23 06/14/25 topical cream hydrochlorothiazide 25 mg tablet 25 mg PO QAM 02/12/23 06/14/25 aspirin 81 mg tablet,delayed 81 mg PO DAILY PRN 06/09/24 06/14/25 release amlodipine 5 mg tablet mg PO DAILY 12/23/24 06/14/25 cholecalciferol (vitamin D3) 25 25 mcg PO QDAY 12/23/24 06/14/25 mcg (1,000 unit) capsule <Reuben Crockett MD - Last Filed: 11/08/25 08:25> Allergies/adverse reactions: Allergies Allergy/AdvReac Type Severity Reaction Status Date / Time adhesive tape Allergy Rash Verified 06/14/25 09:45 latex Allergy Rash Verified 06/14/25 09:45 <Reuben Crockett MD - Last Filed: 11/08/25 08:25> Review of Systems Status of ROS: Reports: 10 or more systems reviewed and unremarkable except as noted in History and below <Reuben Crockett MD - Last Filed: 11/08/25 08:25> [facility] Medical History: Medical History Type II diabetes mellitus ?E11.9 - Type 2 diabetes mellitus without complications (ICD-10) Skull lesion ?M89.9 - Disorder of bone, unspecified (ICD-10) Cataract ?H26.9 - Unspecified cataract (ICD-10) Cyst near tailbone ?L05.91 - Pilonidal cyst without abscess (ICD-10) Arthritis ?M19.90 - Unspecified osteoarthritis, unspecified site (ICD-10) Elevated WBC count ?D72.829 - Elevated white blood cell count, unspecified (ICD-10) GERD (gastroesophageal reflux disease) ?K21.9 - Gastro-esophageal reflux disease without esophagitis (ICD-10) Hyperlipidemia ?E78.5 - Hyperlipidemia, unspecified (ICD-10) Hypertension ?I10 - Essential (primary) hypertension (ICD-10) Coronary artery disease ?I25.10 - Atherosclerotic heart disease of [place] coronary artery without angina pectoris (ICD-10) <Reuben Crockett MD - Last Filed: 11/08/25 08:25> Surgical History: Surgical History History of elbow surgery (12/04/22) ?Z98.890 - Other specified postprocedural states (ICD-10) 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) ?Z96.652 - Presence of left artificial knee joint (ICD-10) 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) ?Z96.651 - Presence of right artificial knee joint (ICD-10) S/P trigger finger release (03/02/21) ?Z98.890 - Other specified postprocedural states (ICD-10) S/P hip replacement (~06/2014) ?Z96.649 - Presence of unspecified artificial hip joint (ICD-10) H/O neck surgery ?Z98.890 - Other specified postprocedural states (ICD-10) History of lumbar surgery ?Z98.890 - Other specified postprocedural states (ICD-10) H/O heart artery stent ?Z95.5 - Presence of coronary angioplasty implant and graft (ICD-10) <Reuben Crockett MD - Last Filed: 11/08/25 08:25> Family History: Family History Other Bone cancer Brain cancer Cancer of colon with rectum Lung cancer <Reuben Crockett MD - Last Filed: 11/08/25 08:25> Social History: Social History Smoking Status: Former smoker How often do you have a drink containing alcohol: monthly or less How many standard drinks containing alcohol do you have on a typical day: 1 or 2 How often do you have six or more drinks on one occasion: Never AUDIT-C Alcohol total score: 1 Non-prescribed substance use: denies use Caffeine: Yes (4-5 cups/day) <Reuben Crockett MD - Last Filed: 11/08/25 08:25> Exam Narrative: Exam Narrative: Objective: In general the patient is in no apparent distress resting comfortably talks in even unlabored sentences Vital signs are within normal limits HEENT shows no scleral icterus no facial asymmetry neck is supple chest clear Heart rhythm regular 2/6 systolic murmur, occasional ectopic beat noted Abdomen benign soft Extremities are no edema Neurologic nonfocal Good peripheral perfusion noted upper lower extremities. <Reuben Crockett MD - Last Filed: 11/08/25 08:25> Const: Vital Signs, click to edit/add: Vital Signs - 24 hr 11/03/25 12:51 11/03/25 13:09 11/03/25 13:14 Temperature 97.0 F L Pulse Rate 68 Pulse Rate [Pulse Oximeter] 71 Respiratory Rate 16 Blood Pressure Blood Pressure [Ri ght Upper Arm] 156/64 H Pulse Oximetry 96 95 96 Oxygen Delivery Me thod Room Air 11/03/25 13:15 11/03/25 13:30 11/03/25 13:45 Temperature Pulse Rate 64 63 71 Pulse Rate [Pulse Oximeter] Respiratory Rate Blood Pressure Blood Pressure [Ri ght Upper Arm] Pulse Oximetry 97 98 97 Oxygen Delivery Me thod 11/03/25 14:00 11/03/25 14:02 11/03/25 14:03 Temperature Pulse Rate 67 65 65 Pulse Rate [Pulse Oximeter] Respiratory Rate 16 Blood Pressure 144/67 H Blood Pressure [Ri ght Upper Arm] Pulse Oximetry 96 96 98 Oxygen Delivery Me thod 11/03/25 14:15 11/03/25 14:30 11/03/25 14:45 Temperature Pulse Rate 62 63 56 L Pulse Rate [Pulse Oximeter] Respiratory Rate 18 Blood Pressure Blood Pressure [Ri ght Upper Arm] Pulse Oximetry 97 95 95 Oxygen Delivery Me thod 11/03/25 15:00 11/03/25 15:01 11/03/25 15:15 Temperature Pulse Rate 61 62 63 Pulse Rate [Pulse Oximeter] Respiratory Rate 16 Blood Pressure 130/73 Blood Pressure [Ri ght Upper Arm] Pulse Oximetry 97 97 95 Oxygen Delivery Me thod 11/03/25 15:30 11/03/25 16:37 11/03/25 16:38 Temperature Pulse Rate 63 75 72 Pulse Rate [Pulse Oximeter] Respiratory Rate 16 Blood Pressure 130/59 L Blood Pressure [Ri ght Upper Arm] Pulse Oximetry 95 95 97 Oxygen Delivery Me thod 11/03/25 16:45 11/03/25 17:00 11/03/25 17:02 Temperature Pulse Rate 74 72 Pulse Rate [Pulse Oximeter] Respiratory Rate Blood Pressure 115/56 L Blood Pressure [Ri ght Upper Arm] Pulse Oximetry 97 98 Oxygen Delivery Me thod <Reuben Crockett MD - Last Filed: 11/08/25 08:25> Vital Signs, click to edit/add: Vital Signs - 24 hr 11/03/25 12:51 11/03/25 13:09 11/03/25 13:14 Temperature 97.0 F L Pulse Rate 68 Pulse Rate [Pulse Oximeter] 71 Respiratory Rate 16 Blood Pressure Blood Pressure [Ri ght Upper Arm] 156/64 H Pulse Oximetry 96 95 96 Oxygen Delivery Me thod Room Air 11/03/25 13:15 11/03/25 13:30 11/03/25 13:45 Temperature Pulse Rate 64 63 71 Pulse Rate [Pulse Oximeter] Respiratory Rate Blood Pressure Blood Pressure [Ri ght Upper Arm] Pulse Oximetry 97 98 97 Oxygen Delivery Me thod 11/03/25 14:00 11/03/25 14:02 11/03/25 14:03 Temperature Pulse Rate 67 65 65 Pulse Rate [Pulse Oximeter] Respiratory Rate 16 Blood Pressure 144/67 H Blood Pressure [Ri ght Upper Arm] Pulse Oximetry 96 96 98 Oxygen Delivery Me thod 11/03/25 14:15 11/03/25 14:30 11/03/25 14:45 Temperature Pulse Rate 62 63 56 L Pulse Rate [Pulse Oximeter] Respiratory Rate 18 Blood Pressure Blood Pressure [Ri ght Upper Arm] Pulse Oximetry 97 95 95 Oxygen Delivery Me thod 11/03/25 15:00 11/03/25 15:01 11/03/25 15:15 Temperature Pulse Rate 61 62 63 Pulse Rate [Pulse Oximeter] Respiratory Rate 16 Blood Pressure 130/73 Blood Pressure [Ri ght Upper Arm] Pulse Oximetry 97 97 95 Oxygen Delivery Me thod 11/03/25 15:30 11/03/25 16:37 11/03/25 16:38 Temperature Pulse Rate 63 75 72 Pulse Rate [Pulse Oximeter] Respiratory Rate 16 Blood Pressure 130/59 L Blood Pressure [Ri ght Upper Arm] Pulse Oximetry 95 95 97 Oxygen Delivery Me thod 11/03/25 16:45 11/03/25 17:00 11/03/25 17:02 Temperature Pulse Rate 74 72 Pulse Rate [Pulse Oximeter] Respiratory Rate Blood Pressure 115/56 L Blood Pressure [Ri ght Upper Arm] Pulse Oximetry 97 98 Oxygen Delivery Me thod <Renetta Adams MD - Last Filed: 11/03/25 18:24> Course Reevaluation(s) Time of Reevaluation #1: 17:04 <Renetta Adams MD - Last Filed: 11/03/25 18:24> Reevaluation #1: Have talked to Reggie and his . Patient had his most recent cardiac stent at [facility], would actually prefer [facility] and not the [facility], they do not like driving in the [facility]. Have reviewed with him that his troponins are elevating. He does remain chest pain-free at this time. He certainly would go for interventions such is angiography, stent placement if Cardiology told him that was what would be needed. Thus, I will contact [facility] which is his preference and talk to Cardiology there. Reviewed that prior ED physician had actually talked to [facility] but the really have no interest in transferring there. <Renetta Adams MD - Last Filed: 11/03/25 18:24> Consultations Consultation #1: Did speak with Dr. Montesinos from Cardiology at [facility]. Reviewed that the troponin is now abnormal and continue to elevate. Patient is pain-free, came in pain-free. He was hoping that we could do a noninvasive test with nuclear medicine or CTA. Reviewed with him that we do not have the capacity to do either of those here at this time. This soonest that the patient could get a nuclear medicine cardiac test would be next Saturday if there was availability in the schedule, I do not know that at this time. He does not think the patient needs to transfer. He would not start the patient heparin. He would recommend observation here overnight and if patient remains stable, discharge to home with outpatient follow-up/outpatient cardiac stress testing. I did subsequently speak with our hospitalist Dr. Lee. She understandably is not very comfortable with this plan. I will do repeat highly sensitive troponin in 2 hours, she is going to look through his history. I will go talk to the patient in see with his thoughts would be as far as desires for further interventions such is angiography stent placement etc. <Renetta Adams MD - Last Filed: 11/03/25 18:24> Time: 16:44 <Renetta Adams MD - Last Filed: 11/03/25 18:24> Consultation #2: Have spoken with Veronica ORTIZ in the transfer center. We will fax the EKG and labs to her. She will call back with Cardiology. 5:53 p.m.: Have spoken with pool nurse Dr. Renee at [facility]. He agrees that this patient should transfer. Patient at this time remains chest pain free, he recommends that we just do the heparin drip, no bolus. Patient was already given aspirin earlier while here. He states they will decide what to do as far as other anti-platelet agents. I will initiate the heparin drip here. We will await bed placement. <Renetta Adams MD - Last Filed: 11/03/25 18:24> Time: 17:09 <Renetta Adams MD - Last Filed: 11/03/25 18:24> Vital Signs Vital signs: Initial Vital Signs Temperature 97.0 F L 11/03/25 12:51 Temperature Source Temporal Artery Scan 11/03/25 12:51 Pulse Rate 71 11/03/25 12:51 Respiratory Rate 16 11/03/25 12:51 Blood Pressure 156/64 H 11/03/25 12:51 Blood Pressure Mean 94 11/03/25 12:51 Blood Pressure Position Sitting 11/03/25 12:51 Pulse Oximetry 96 11/03/25 12:51 Oxygen Delivery Method Room Air 11/03/25 12:51 Vital Signs Temperature 97.0 F L 11/03/25 12:51 Pulse Rate 71 11/03/25 12:51 Respiratory Rate 16 11/03/25 12:51 Blood Pressure 156/64 H 11/03/25 12:51 Pulse Oximetry 96 11/03/25 12:51 Oxygen Delivery Method Room Air 11/03/25 12:51 Temperature 97.0 F L 11/03/25 12:51 Pulse Rate 72 11/03/25 18:45 Respiratory Rate 18 11/03/25 18:45 Blood Pressure 134/76 11/03/25 18:27 Pulse Oximetry 96 11/03/25 18:45 Oxygen Delivery Method Room Air 12/10/25 12:51 <Reuben Crockett MD - Last Filed: 11/08/25 08:25> Initial Vital Signs Temperature 97.0 F L 11/03/25 12:51 Temperature Source Temporal Artery Scan 11/03/25 12:51 Pulse Rate 71 11/03/25 12:51 Respiratory Rate 16 11/03/25 12:51 Blood Pressure 156/64 H 11/03/25 12:51 Blood Pressure Mean 94 11/03/25 12:51 Blood Pressure Position Sitting 11/03/25 12:51 Pulse Oximetry 96 11/03/25 12:51 Oxygen Delivery Method Room Air 11/03/25 12:51 Vital Signs Temperature 97.0 F L 11/03/25 12:51 Pulse Rate 71 11/03/25 12:51 Respiratory Rate 16 11/03/25 12:51 Blood Pressure 156/64 H 11/03/25 12:51 Pulse Oximetry 96 11/03/25 12:51 Oxygen Delivery Method Room Air 11/03/25 12:51 Temperature 97.0 F L 11/03/25 12:51 Pulse Rate 72 11/03/25 18:45 Respiratory Rate 18 11/03/25 18:45 Blood Pressure 134/76 11/03/25 18:27 Pulse Oximetry 96 11/03/25 18:45 Oxygen Delivery Method Room Air 11/03/25 12:51 <Renetta Adams MD - Last Filed: 11/03/25 18:24> Medications Administered Medications: Discontinued Medications Generic Name Dose Route Start Last Admin Trade Name Freq PRN Reason Stop Dose Admin Aspirin 324 mg 11/03/25 13:49 11/03/25 14:18 Aspirin 81 Mg Tab.Chew PO 11/03/25 13:50 324 mg ONCE ONE Administration Heparin Sodium/Dextrose 25,000 unit in 500 mls @ 0 mls/hr 11/03/25 18:00 11/03/25 18:16 Heparin IV 950 unit/hr .Q0M JULIO CESAR 19 mls/hr Protocol Administration Per Protocol <Reuben Crockett MD - Last Filed: 11/08/25 08:25> Discontinued Medications Generic Name Dose Route Start Last Admin Trade Name Freq PRN Reason Stop Dose Admin Aspirin 324 mg 11/03/25 13:49 11/03/25 14:18 Aspirin 81 Mg Tab.Chew PO 11/03/25 13:50 324 mg ONCE ONE Administration Heparin Sodium/Dextrose 25,000 unit in 500 mls @ 0 mls/hr 11/03/25 18:00 11/03/25 18:16 Heparin IV 950 unit/hr .Q0M JULIO CESAR 19 mls/hr Protocol Administration Per Protocol <Renetta Adams MD - Last Filed: 11/03/25 18:24> Medical Decision Making [facility] Narrative Medical decision making narrative: 85-year-old male with 6 stents in the past with an episode of chest pain following pretty heavy exertion was snow blowing and shoveling. He has not had any recent chest pain. He does have nitroglycerin at home as needed he took 3 nitroglycerins and his symptoms resolved. He is also on amlodipine 5 mg and metoprolol 25 mg extended release. The patient had not been taking his aspirin. He did get an aspirin on presentation to the ER he is asymptomatic, will check a chest x-ray, his troponin is negative. Will check another troponin in about 90 minutes. Laboratory studies will be checked, chest x-ray as mention. I suspect that perhaps increasing his metoprolol would be reasonable, may need to discuss with Cardiology. I think ruling out acute coronary syndrome 1st would be appropriate. Patient also by my independent read has an EKG that shows normal sinus rhythm right bundle-branch block no obvious other acute ST T wave changes. Addendum 3:00 p.m.: Patient had a follow-up troponin that is still within normal range but it has elevated from 11-21. He has had no new chest pain or other symptoms he has been asymptomatic. He has had 6 stents. At this point will consult with Cardiology to see what recommendations would be in an asymptomatic man with a elevating troponin with a history of that significant amount of coronary artery disease. Dr. Graham at I recommended repeating a 3rd troponin to make sure it is not elevating still, and if it is staying within normal range her not elevated be more than 7 he would recommend follow-up as an outpatient for a cardiac stress test. He can certainly follow up with his regular position to get this scheduled. Third high sensitivity troponin will be ordered. The patient's white blood cell count is elevated consistently with his monoclonal B-cell lymphocytosis. <Reuben Crockett MD - Last Filed: 11/08/25 08:25> Lab Data Lab results reviewed: Yes I reviewed the patient's lab results <Renetta Adams MD - Last Filed: 11/03/25 18:24> Labs: Lab Results 11/03/25 11/03/25 11/03/25 Range/Units 13:00 13:09 14:30 WBC 28.29 H* (4.50-11.00) K/uL RBC 4.40 (4.30-5.90) m/uL Hgb 13.4 L (13.5-17.5) gm/dL Hct 42.3 (37.0-53.0) % MCV 96 (80-100) fL MCH 31 (26-34) pg MCHC 32 (32-36) gm/dL RDW Coeff of [place] 13.0 (11.5-15.5) % Plt Count 225 (140-440) K/uL Neut % (Auto) 24.1 L (42.0-72.0) % Lymph % (Auto) 64.2 H (20-44) % Dane % (Auto) 9.7 (0.0-11.0) % Eos % (Auto) 1.0 (0.0-7.0) % Baso % (Auto) 0.4 (0.0-3.0) % Neut # (Auto) 6.80 (1.7-7.0) K/uL Lymph # (Auto) 18.20 H (0.90-2.90) K/uL Dane # (Auto) 2.70 H (0.00-0.90) K/UL Eos # (Auto) 0.30 (0.00-0.50) K/uL Baso # (Auto) 0.10 (0.00-0.30) K/uL Abs Immat Gran (auto) 0.20 (0.00-0.30) K/uL Imm/Tot Granulo (auto) 0.6 % Diff Slide Review Acceptable Review (Acceptable) Sodium 134 L (135-149) mmol/L Potassium 4.2 (3.6-5.1) mmol/L Chloride 100 (96-114) mmol/L Carbon Dioxide 22 (20-32) mmol/L Anion Gap 12 (7-15) mEq/L BUN 16 (7-30) mg/dL Creatinine 1.5 (0.5-1.5) mg/dL Estimated Creat Clear 32.49 Estimated GFR 45 ml/min Glucose 123 H (60-115) mg/dL Calcium 8.7 (8.4-10.6) mg/dL POC Troponin I High Sensi 11.4 21.2 (2.9-28.0) pg/mL NT-Pro-B Natriuret Pep 375 H (See Note) pg/mL 11/03/25 11/03/25 Range/Units 16:05 18:05 WBC (4.50-11.00) K/uL RBC (4.30-5.90) m/uL Hgb (13.5-17.5) gm/dL Hct (37.0-53.0) % MCV (80-100) fL MCH (26-34) pg MCHC (32-36) gm/dL RDW Coeff of [place] (11.5-15.5) % Plt Count (140-440) K/uL Neut % (Auto) (42.0-72.0) % Lymph % (Auto) (20-44) % Dane % (Auto) (0.0-11.0) % Eos % (Auto) (0.0-7.0) % Baso % (Auto) (0.0-3.0) % Neut # (Auto) (1.7-7.0) K/uL Lymph # (Auto) (0.90-2.90) K/uL Dane # (Auto) (0.00-0.90) K/UL Eos # (Auto) (0.00-0.50) K/uL Baso # (Auto) (0.00-0.30) K/uL Abs Immat Gran (auto) (0.00-0.30) K/uL Imm/Tot Granulo (auto) % Diff Slide Review (Acceptable) Sodium (135-149) mmol/L Potassium (3.6-5.1) mmol/L Chloride (96-114) mmol/L Carbon Dioxide (20-32) mmol/L Anion Gap (7-15) mEq/L BUN (7-30) mg/dL Creatinine (0.5-1.5) mg/dL Estimated Creat Clear Estimated GFR ml/min Glucose (60-115) mg/dL Calcium (8.4-10.6) mg/dL POC Troponin I High Sensi 31.5 H* 48.1 H* (2.9-28.0) pg/mL NT-Pro-B Natriuret Pep (See Note) pg/mL <Reuben Crockett MD - Last Filed: 11/08/25 08:25> Lab Results 11/03/25 11/03/25 11/03/25 Range/Units 13:00 13:09 14:30 WBC 28.29 H* (4.50-11.00) K/uL RBC 4.40 (4.30-5.90) m/uL Hgb 13.4 L (13.5-17.5) gm/dL Hct 42.3 (37.0-53.0) % MCV 96 (80-100) fL MCH 31 (26-34) pg MCHC 32 (32-36) gm/dL RDW Coeff of [place] 13.0 (11.5-15.5) % Plt Count 225 (140-440) K/uL Neut % (Auto) 24.1 L (42.0-72.0) % Lymph % (Auto) 64.2 H (20-44) % Dane % (Auto) 9.7 (0.0-11.0) % Eos % (Auto) 1.0 (0.0-7.0) % Baso % (Auto) 0.4 (0.0-3.0) % Neut # (Auto) 6.80 (1.7-7.0) K/uL Lymph # (Auto) 18.20 H (0.90-2.90) K/uL Dane # (Auto) 2.70 H (0.00-0.90) K/UL Eos # (Auto) 0.30 (0.00-0.50) K/uL Baso # (Auto) 0.10 (0.00-0.30) K/uL Abs Immat Gran (auto) 0.20 (0.00-0.30) K/uL Imm/Tot Granulo (auto) 0.6 % Diff Slide Review Acceptable Review (Acceptable) Sodium 134 L (135-149) mmol/L Potassium 4.2 (3.6-5.1) mmol/L Chloride 100 (96-114) mmol/L Carbon Dioxide 22 (20-32) mmol/L Anion Gap 12 (7-15) mEq/L BUN 16 (7-30) mg/dL Creatinine 1.5 (0.5-1.5) mg/dL Estimated Creat Clear 32.49 Estimated GFR 45 ml/min Glucose 123 H (60-115) mg/dL Calcium 8.7 (8.4-10.6) mg/dL POC Troponin I High Sensi 11.4 21.2 (2.9-28.0) pg/mL NT-Pro-B Natriuret Pep 375 H (See Note) pg/mL 11/03/25 11/03/25 Range/Units 16:05 18:05 WBC (4.50-11.00) K/uL RBC (4.30-5.90) m/uL Hgb (13.5-17.5) gm/dL Hct (37.0-53.0) % MCV (80-100) fL MCH (26-34) pg MCHC (32-36) gm/dL RDW Coeff of [place] (11.5-15.5) % Plt Count (140-440) K/uL Neut % (Auto) (42.0-72.0) % Lymph % (Auto) (20-44) % Dane % (Auto) (0.0-11.0) % Eos % (Auto) (0.0-7.0) % Baso % (Auto) (0.0-3.0) % Neut # (Auto) (1.7-7.0) K/uL Lymph # (Auto) (0.90-2.90) K/uL Dane # (Auto) (0.00-0.90) K/UL Eos # (Auto) (0.00-0.50) K/uL Baso # (Auto) (0.00-0.30) K/uL Abs Immat Gran (auto) (0.00-0.30) K/uL Imm/Tot Granulo (auto) % Diff Slide Review (Acceptable) Sodium (135-149) mmol/L Potassium (3.6-5.1) mmol/L Chloride (96-114) mmol/L Carbon Dioxide (20-32) mmol/L Anion Gap (7-15) mEq/L BUN (7-30) mg/dL Creatinine (0.5-1.5) mg/dL Estimated Creat Clear Estimated GFR ml/min Glucose (60-115) mg/dL Calcium (8.4-10.6) mg/dL POC Troponin I High Sensi 31.5 H* 48.1 H* (2.9-28.0) pg/mL NT-Pro-B Natriuret Pep (See Note) pg/mL <Renetta Adams MD - Last Filed: 11/03/25 18:24> ECG Data Attestation: I personally reviewed and interpreted this ECG as follows: (Normal sinus rhythm, 70 beats per minute. Patient does have right bundle branch block but otherwise no evidence of any definitive ischemia or infarct.) <Renetta Adams MD - Last Filed: 11/03/25 18:24> Interpretation: EKG from clinic 07/20/2024 showed normal sinus rhythm with sinus arrhythmia, 60 beats per minute. There was no right bundle branch block. There is no ischemia or infarct. <Renetta Adams MD - Last Filed: 11/03/25 18:24> Discharge Plan Discharge Clinical Impression: Monoclonal B-cell lymphocytosis, History of coronary artery disease, Acute non-ST elevation myocardial infarction (NSTEMI) Chest pain Qualifiers: Chest pain type: chest pain due to myocardial ischemia <Reuben Crockett MD - Last Filed: 11/08/25 08:25> Prescriptions: No Action atorvastatin 20 mg tablet 20 mg PO .Bedtime acetaminophen 325 mg tablet 325 mg PO DAILY PRN Rx Instructions: NO MORE THAN 4000 MG/DAY omeprazole 20 mg capsule,delayed release(DR/EC) 20 mg PO DAILY nitroglycerin 0.4 mg tablet, sublingual 0.4 mg sublingual PRN Rx Instructions: PRN CHEST PAIN metoprolol succinate 25 mg tablet extended release 24 hr 25 mg PO QDAY aspirin 81 mg tablet,delayed release (DR/EC) 81 mg PO DAILY PRN cholecalciferol (vitamin D3) 25 mcg (1,000 unit) capsule 25 mcg PO QDAY losartan 100 mg tablet 100 mg PO QDAY hydrochlorothiazide 25 mg tablet 25 mg PO QAM amlodipine 5 mg tablet PO DAILY triamcinolone acetonide 0.1 % cream 1 applic topical BID-TID betamethasone, augmented 0.05 % cream topical ketoconazole 2 % cream topical <Reuben Crockett MD - Last Filed: 11/08/25 08:25> Follow Up/Referrals: Bartolo Figueroa MD [Primary Care Provider, Family Practice] <Reuben Crockett MD - Last Filed: 11/08/25 08:25>
[2025-11-03 14:10] LABS: Hematocrit* 42.3 % (37.0-53.0); Hemoglobin* 13.4 gm/dL (13.5-17.5); Immature Granulocytes Pct Auto 0.6 %; Mean Corpuscular HGB Conc 32 gm/dL (32-36); Mean Corpuscular Hemoglobin 31 pg (26-34); Mean Corpuscular Volume 96 fL (80-100); RDW Coefficient of Variation % 13.0 % (11.5-15.5); Red Blood Count* 4.40 m/uL (4.30-5.90)
[2025-11-03] MEDS: ASPIRIN 81 MG TAB.CHEW 324 MG PO (14:18)
[2025-11-03 14:19] LABS: Chloride* 100 mmol/L (96-114); Potassium* 4.2 mmol/L (3.6-5.1); Sodium* 134 mmol/L (135-149)
[2025-11-03 14:22] LABS: Anion Gap 12 mEq/L (7-15); Blood Urea Nitrogen* 16 mg/dL (7-30); Carbon Dioxide* 22 mmol/L (20-32)
[2025-11-03 14:23] LABS: Calcium* 8.7 mg/dL (8.4-10.6); Glucose* 123 mg/dL (60-115)
[2025-11-03 14:28] LABS: Creatinine* 1.5 mg/dL (0.5-1.5); Est. Creatinine Clearance* 32.49; Estimated Glomerular Filt Rate 45 ml/min
[2025-11-03 14:38] LABS: Immature Granulocytes Abs Auto 0.20 K/uL (0.00-0.30); Lymphocytes Absolute Auto 18.20 K/uL (0.90-2.90); Slide Review Reflex Yes; White Blood Count* 28.29 K/uL (4.50-11.00)
[2025-11-03 14:43] LABS: NT Pro B Type NatriureticPept* 375 pg/mL (See Note)
[2025-11-03 15:40] LABS: Slide Review Acceptable Review (Acceptable)
[2025-11-03] MEDS: HEPARIN 25,000 UNIT/500 ML BAG 19 UNIT IV (18:16)
== END 2025-11-03 19:00 | disposition home or self-care (01) ==
PROVIDERS: Family Medicine; Emergency Provider Family Medicine; PCP Family Medicine
DX: I21.4 Non-ST elevation (NSTEMI) myocardial infarction (principal); D72.820 Lymphocytosis (symptomatic); Z86.79 Personal history of other diseases of the circulatory system
CPT/HCPCS: 36415; 71045; 80048; 83880; 84484; 85025; 93005; 94761; 99285; A9270; J1644

== ENCOUNTER 2025-11-03 19:00 | Outpatient (CLI) | payer MEDICARE, BC, SELFPAY | END 2025-11-03 19:01 | disposition home or self-care (01) | LOC: AMB 11-10 10:10 | PROVIDERS: PCP Family Medicine; Visit Provider Family Medicine | DX: I21.4 Non-ST elevation (NSTEMI) myocardial infarction (principal); D72.820 Lymphocytosis (symptomatic) | CPT/HCPCS: A0425; A0434 ==